=== PATIENT | male | born 1940 ===

== ENCOUNTER 2023-06-12 08:16 | Outpatient (CLI) | payer MEDICARE, OTHER ==
[2023-06-12] MEDS ORDERED: Iopamidol 370 76% 100 ML VIAL ONE (10:51)
== END 2023-06-12 08:17 | disposition home or self-care (01) ==
LOC: CT 08:16
PROVIDERS: ATTEND Thoracic Surgery (Cardiothoracic Vascular Surgery)
DX: I71.40 Abdominal aortic aneurysm, without rupture, unspecified (principal); J90 Pleural effusion, not elsewhere classified
CPT/HCPCS: 74174; 82565; Q9967